=== PATIENT | female | born 1960 | race Two or more races ===

== ENCOUNTER → 2019-08-30 | Outpatient (CLI) | payer SELFPAY ==
--- NOTE | 2019-08-30 14:45 | EMB_PTH ---
PATIENT: SHERI DOBBS LOC: [facility] U#:[id number] AGE/SX: 59/F ROOM: RE08/30/[address]: Dr. Bryan Avina MD : [id number] BED: DIS: 08/30/2019 SPEC #: [id number] RECD: 08/30/19 17:12 STATUS: JEANNINE TA #: [id number] TING: 08/30/19 14:[address]: Bryan Avina DEPT: SURGICAL PATHOLOGY RECD BY: Renny Meraz Tissues: Endometrium, NOS Procedures: Surgery Specimen Level IV HEADER OPERATION: Endometrial biopsy PRE-OP DIAGNOSIS: N95.0 TISSUE SUBMITTED: Endometrial biopsy MICROSCOPIC DIAGNOSIS Endometrium, biopsy: Polypoid fragments of secretory endometrium. AM:nacho 09/03/19 MICROSCOPIC DESCRIPTION Slides are reviewed. GROSS DESCRIPTION Received in fixative is one container labeled with the patient's name and designated endometrial biopsy. The specimen consists of multiple irregular fragments of light puga soft tissue that in aggregate measure 3 x 1.5 x 1 cm. The specimen is totally submitted in one cassette. / AM:nacho 08/31/19 TC:5 CPT: 53094
[2019-09-06 12:05] LABS: HPV Reflexed? NOT INDICATED
== END | disposition home or self-care (01) ==
PROVIDERS: Visit Provider Obstetrics & Gynecology
DX: N95.0 Postmenopausal bleeding (principal); Z12.4 Encounter for screening for malignant neoplasm of cervix
CPT/HCPCS: 88175; 88305; G0145

== ENCOUNTER 2021-06-17 12:10 | Outpatient (CLI) | payer SELFPAY ==
[2021-06-17 15:30] LABS: Absolute Lymphocyte Count 2.47 X10^3/uL (0.83-4.51); Absolute Neutrophil Count 3.5 X10^3/uL (2.0-7.7); Basophil# 0.05 X10^3/uL; Basophil% 0.7 % (0-1); Eosinophil# 0.19 X10^3/uL; Eosinophils% 2.7 % (0-5); Erythrocyte Sedimentation Rate 7 mm/hr (0-30); Hematocrit 40.8 % (37-47); Hemoglobin 13.6 g/dL (12.0-15.0); Lymphocyte # 2.47 X10^3/ul (0.83-4.51); Lymphocyte % 35.4 % (19-41); Mean Corp Hgb Conc 33.3 g/dL (32-36); Mean Corpuscular Hgb 30.4 pg (27.0-32.0); Mean Corpuscular Volume 91.1 fL (81-99); Mean Platelet Vol. 9.6 fl (6.2-12.0); Monocyte# 0.73 X10^3/uL; Monocyte% 10.5 % (0-10); NRBC Flagged by Analyzer 0 % (0-5); Neutrophil # 3.53 X10^3/uL (2.7-7.7); Neutrophil % 50.6 % (47-70); Platelet Count 347 K/mm3 (150-450); RBC Distribution Width CV 11.8 % (11.6-14.6); RBC Distribution Width SD 39.2 fl (35.1-43.9); Red Blood Count 4.48 M/mm3 (4.2-5.4)
[2021-06-17 15:47] LABS: CRP < 2.90 mg/L (0.0-3.0)
== END 2021-06-17 23:59 | disposition short-term general hospital (02) ==
PROVIDERS: Referring Provider Specialist; Visit Provider Specialist
DX: Z96.652 Presence of left artificial knee joint (principal)
CPT/HCPCS: 36415; 85025; 85652; 86140